=== PATIENT | male | born 1970 | race Caucasian/White ===

== ENCOUNTER 2021-11-28 19:24 | Inpatient (IN) ==
[2021-11-28 19:45] LABS: Basophils # 0.1 K/mcL (0.0-0.2); Basophils % 0.8 %; Eosinophils # 0.1 K/mcL (0.0-0.6); Eosinophils % 1.5 %; Hematocrit 45.5 % (37.5-50.1); Hemoglobin 14.4 g/dL (12.9-16.9); Immature Granulocytes % 0.8 % (0-4); Lymphocytes # 1.2 K/mcL (0.6-4.6); Mean Corpuscular HGB Conc 31.6 g/dL (31.6-35.5); Mean Corpuscular Hemoglobin 31.2 pg (28.0-33.3); Mean Corpuscular Volume 98.7 fL (83.0-100.0); Mean Platelet Volume 11.3 fL (9.4-12.4); Monocytes # 0.6 K/mcL (0.0-1.3); Monocytes % 10.7 %; Platelet Count 173 K/mcL (140-400); Red Blood Count 4.61 M/mcL (4.19-5.50); Red Cell Distribution Width 12.4 % (11.5-14.5); Segmented Neutrophils % 66.2 %
[2021-11-28] MEDS: DilTIAZem 50 MG/50 ML IV.SOLN IVC SCH (19:56)
[2021-11-28 20:01] LABS: INR 1.2; Prothrombin Time 13.9 Seconds (9.4-12.1)
[2021-11-28 20:04] LABS: Activated Partial Thrombo Time 31.2 Seconds (26.0-36.0)
[2021-11-28 20:04] LABS: Bilirubin,Urine Negative (Negative); Blood,Urine Negative (Negative); Clarity,Urine Clear (Clear); Color,Urine Yellow (Yellow); Glucose,Urine (UA) Normal (Normal); Hyaline Casts,Urine Few per lpf (None Seen); Ketones,Urine Negative (Negative); Leukocyte Esterase,Urine Negative (Negative); Mucus,Urine Many per lpf (None-Few); Nitrite,Urine Negative (Negative); Protein,Urine 100 mg/dL (Neg-Trace); RBC,Urine 0-3 per hpf (0-3); Specific Gravity,Urine > 1.030 (1.010-1.025); Squamous Epithelial Cell,Urine Few per hpf (None-Few); Urobilinogen,Urine Normal (Normal); WBC,Urine 0-3 per hpf (0-3)
[2021-11-28 20:06] LABS: BUN/Creatinine Ratio 15 (6-26); Blood Urea Nitrogen 13 mg/dL (6-20); Carbon Dioxide 25 mEq/L (23-29); Chloride 105 mEq/L (98-107); Glucose 94 mg/dL (70-105); Magnesium 1.9 mg/dL (1.6-2.6); Osmolality,Calculated 286 (280-300); Potassium 4.1 mEq/L (3.5-5.1); Sodium 138 mEq/L (136-145); Troponin I 0.03 ng/mL (< 0.04); eGFR For African Americans > 60 (> 60); eGFR For Non-African Americans > 60 (> 60)
[2021-11-28 20:20] LABS: Thyroid Stimulating Hormone 2.479 mcIU/mL (0.340-5.600)
[2021-11-28] MEDS ORDERED: Ondansetron 4 MG/2 ML VIAL IVP PRN (20:49)
[2021-11-28] MEDS ORDERED: Acetaminophen 325 MG TABLET PO PRN (20:49)
[2021-11-28] MEDS ORDERED: Naloxone 0.4 MG/ML INJ IVP PRN (20:49)
[2021-11-28] MEDS ORDERED: Perflutren Lipid Microsphere 1.3 ML in 0.9 % Sodium Chloride 8.7 ML IVP PRN (20:51)
[2021-11-29] MEDS ORDERED: Furosemide 40 MG/4 ML VIAL IVP ONE (00:02)
[2021-11-29] MEDS ORDERED: Ipratropium/Albuterol Neb 3 ML IH PRN (00:09)
[2021-11-29] MEDS: Azithromycin 500 MG in 0.9 % Sodium Chloride 250 ML IVPB SCH (00:28)
[2021-11-29] MEDS: Aspirin Enteric Coated 325 MG Tablet PO SCH ×2 (00:30→09:10)
[2021-11-29] MEDS ORDERED: Morphine Sulfate 2 MG/ML SYRINGE IVP ONE (01:08)
[2021-11-29] MEDS: DilTIAZem 50 MG/50 ML IV.SOLN IVC SCH ×3 (01:11→22:26)
[2021-11-29 01:55] LABS: Amphetamine Screen,Urine Negative ng/mL (Cutoff=1000); Barbiturate Screen,Urine Negative ng/mL (Cutoff=200); Benzodiazepines Screen,Urine Negative ng/mL (Cutoff=200); Cannabinoid Screen,Urine Negative ng/mL (Cutoff = 50); Cocaine Screen,Urine Negative ng/mL (Cutoff= 300); Opiate Screen,Urine Negative ng/mL (Cutoff=300); Phencyclidine Screen,Urine Negative ng/mL (Cutoff=25)
[2021-11-29 02:29] LABS: Basophils % 0.4 %; Eosinophils % 0.2 %; Hematocrit 43.5 % (37.5-50.1); Hemoglobin 13.6 g/dL (12.9-16.9); Immature Granulocytes % 0.6 % (0-4); Lymphocytes # 0.4 K/mcL (0.6-4.6); Lymphocytes % 7.8 %; Mean Corpuscular HGB Conc 31.3 g/dL (31.6-35.5); Mean Corpuscular Hemoglobin 30.9 pg (28.0-33.3); Mean Corpuscular Volume 98.9 fL (83.0-100.0); Mean Platelet Volume 11.6 fL (9.4-12.4); Monocytes # 0.2 K/mcL (0.0-1.3); Monocytes % 3.2 %; Neutrophils # 4.4 K/mcL (1.6-8.9); Platelet Count 160 K/mcL (140-400); Red Cell Distribution Width 12.4 % (11.5-14.5); Segmented Neutrophils % 87.8 %
[2021-11-29 02:39] LABS: INR 1.3
[2021-11-29 02:49] LABS: Alanine Aminotransferase 30 Units/L (7-52); Albumin 3.9 g/dL (3.5-5.7); Albumin/Globulin Ratio 1.3 (1.1-2.2); Alkaline Phosphatase 69 Units/L (34-104); Aspartate Amino Transferase 21 Units/L (13-39); BUN/Creatinine Ratio 17 (6-26); Bilirubin,Direct 0.1 mg/dL (0.0-0.2); Bilirubin,Indirect 0.6 mg/dL (0.0-1.0); Bilirubin,Total 0.7 mg/dL (0.3-1.0); Blood Urea Nitrogen 15 mg/dL (6-20); Calcium 8.8 mg/dL (8.6-10.3); Carbon Dioxide 23 mEq/L (23-29); Chloride 105 mEq/L (98-107); Chol/HDL Ratio 3.6 (0-4.9); Cholesterol 120 mg/dL (< 200); Globulin 2.9 g/dL (2.4-3.5); Glucose 227 mg/dL (70-105); HDL Cholesterol 33 mg/dL (40-59); LDL Cholesterol,Calculated 78 mg/dL (< 100); Magnesium 1.8 mg/dL (1.6-2.6); Osmolality,Calculated 292 (280-300); Potassium 4.2 mEq/L (3.5-5.1); Sodium 137 mEq/L (136-145); Total Protein 6.8 g/dL (6.4-8.9); Triglycerides 45 mg/dL (< 150); eGFR For African Americans > 60 (> 60); eGFR For Non-African Americans > 60 (> 60)
[2021-11-29 05:47] LABS: Estimated Average Glucose 128 mg/dl; Hemoglobin A1C 6.1 %
[2021-11-29] MEDS ORDERED: *HR* Enoxaparin 40 MG/0.4 ML SYRINGE SQ SCH (09:00)
[2021-11-29] MEDS: Budesonide/Formoterol 80/4.5 1 PUFF INH IH SCH ×2 (11:43→20:31)
[2021-11-29] MEDS: Metoprolol XL (24 HR) Succ 25 MG TAB.ER.24H PO SCH (12:47)
[2021-11-29] MEDS: Levalbuterol 1 PUFF INHALER IH SCH ×2 (15:48→20:32)
[2021-11-29] MEDS: Furosemide 40 MG/4 ML VIAL IVP SCH (17:55)
[2021-11-29] MEDS: *HR* Enoxaparin 150 MG/ML SYRINGE SQ SCH (17:56)
[2021-11-30] MEDS: Levalbuterol 1 PUFF INHALER IH SCH ×4 (04:09→20:03)
[2021-11-30 05:00] LABS: Basophils # 0.1 K/mcL (0.0-0.2); Basophils % 0.8 %; Eosinophils # 0.1 K/mcL (0.0-0.6); Eosinophils % 1.5 %; Hematocrit 44.9 % (37.5-50.1); Hemoglobin 13.8 g/dL (12.9-16.9); Immature Granulocytes % 0.6 % (0-4); Lymphocytes # 1.6 K/mcL (0.6-4.6); Mean Corpuscular HGB Conc 30.7 g/dL (31.6-35.5); Mean Corpuscular Hemoglobin 31.2 pg (28.0-33.3); Mean Corpuscular Volume 101.4 fL (83.0-100.0); Mean Platelet Volume 11.6 fL (9.4-12.4); Monocytes # 0.5 K/mcL (0.0-1.3); Monocytes % 7.8 %; Neutrophils # 4.3 K/mcL (1.6-8.9); Platelet Count 154 K/mcL (140-400); Red Blood Count 4.43 M/mcL (4.19-5.50); Red Cell Distribution Width 12.4 % (11.5-14.5); Segmented Neutrophils % 65.3 %; White Blood Count 6.6 K/mcL (4.3-11.1)
[2021-11-30] MEDS: *HR* Enoxaparin 150 MG/ML SYRINGE SQ SCH (05:11)
[2021-11-30 05:15] LABS: BUN/Creatinine Ratio 22 (6-26); Blood Urea Nitrogen 18 mg/dL (6-20); Calcium 8.9 mg/dL (8.6-10.3); Carbon Dioxide 24 mEq/L (23-29); Chloride 105 mEq/L (98-107); Glucose 108 mg/dL (70-105); Magnesium 1.9 mg/dL (1.6-2.6); Osmolality,Calculated 288 (280-300); Sodium 138 mEq/L (136-145); eGFR For African Americans > 60 (> 60); eGFR For Non-African Americans > 60 (> 60)
[2021-11-30] MEDS: Budesonide/Formoterol 80/4.5 1 PUFF INH IH SCH ×2 (07:37→20:03)
[2021-11-30] MEDS: Metoprolol XL (24 HR) Succ 25 MG TAB.ER.24H PO SCH ×2 (08:03→20:03)
[2021-11-30] MEDS: Aspirin Enteric Coated 325 MG Tablet PO SCH (08:03)
[2021-11-30] MEDS: Furosemide 40 MG/4 ML VIAL IVP SCH ×2 (08:03→16:44)
[2021-11-30] MEDS: Azithromycin 500 MG in 0.9 % Sodium Chloride 250 ML IVPB SCH (08:04)
[2021-11-30] MEDS: DilTIAZem 50 MG/50 ML IV.SOLN IVC SCH (08:08)
[2021-11-30] MEDS ORDERED: *HR* FentaNYL (PF) 100 MCG/2 ML VIAL ONE (13:16)
[2021-11-30] MEDS ORDERED: *HR* Midazolam HCl 2 MG/2 ML VIAL ONE (13:16)
[2021-11-30] MEDS ORDERED: ISOVUE-370 200 ML INFUS..BTL ONE (13:17)
[2021-11-30] MEDS ORDERED: Nitroglycerin 1,000 MCG/5 ML VIAL IV ONE (13:17)
[2021-11-30] MEDS ORDERED: 0.9 % Sodium Chloride 2,000 ML ONE (13:17)
[2021-11-30] MEDS ORDERED: *HR* Heparin 10,000 UNIT/10 ML VIAL ONE (13:17)
[2021-11-30] MEDS ORDERED: Heparin 1,000 UNITS/500 mL 500 ML ONE (13:17)
[2021-11-30] MEDS ORDERED: Amiodarone Premix 150 MG/100 ML BAG IVPB ONE (14:36)
[2021-11-30] MEDS ORDERED: Amiodarone Premix 360 MG/200 ML BAG IVC ONE (15:00)
[2021-11-30] MEDS: Apixaban 5 MG TABLET PO SCH (20:03)
[2021-11-30] MEDS: Amiodarone Premix 360 MG/200 ML BAG IVC SCH (22:26)
[2021-12-01] MEDS: Levalbuterol 1 PUFF INHALER IH SCH ×4 (04:25→20:24)
[2021-12-01 04:59] LABS: Basophils # 0.1 K/mcL (0.0-0.2); Basophils % 0.6 %; Eosinophils # 0.1 K/mcL (0.0-0.6); Eosinophils % 1.3 %; Hematocrit 43.2 % (37.5-50.1); Hemoglobin 13.6 g/dL (12.9-16.9); Immature Granulocytes % 0.6 % (0-4); Lymphocytes # 1.6 K/mcL (0.6-4.6); Lymphocytes % 20.4 %; Mean Corpuscular HGB Conc 31.5 g/dL (31.6-35.5); Mean Corpuscular Hemoglobin 31.1 pg (28.0-33.3); Mean Corpuscular Volume 98.9 fL (83.0-100.0); Mean Platelet Volume 11.6 fL (9.4-12.4); Monocytes # 0.6 K/mcL (0.0-1.3); Monocytes % 7.1 %; Neutrophils # 5.4 K/mcL (1.6-8.9); Platelet Count 166 K/mcL (140-400); Red Blood Count 4.37 M/mcL (4.19-5.50); Red Cell Distribution Width 12.3 % (11.5-14.5); White Blood Count 7.7 K/mcL (4.3-11.1)
[2021-12-01 05:17] LABS: BUN/Creatinine Ratio 19 (6-26); Blood Urea Nitrogen 19 mg/dL (6-20); Calcium 8.6 mg/dL (8.6-10.3); Carbon Dioxide 26 mEq/L (23-29); Chloride 103 mEq/L (98-107); Glucose 125 mg/dL (70-105); Magnesium 1.8 mg/dL (1.6-2.6); Osmolality,Calculated 288 (280-300); Potassium 3.9 mEq/L (3.5-5.1); Sodium 137 mEq/L (136-145); eGFR For African Americans > 60 (> 60); eGFR For Non-African Americans > 60 (> 60)
[2021-12-01] MEDS: Furosemide 40 MG/4 ML VIAL IVP SCH ×2 (07:24→17:38)
[2021-12-01] MEDS: Metoprolol XL (24 HR) Succ 25 MG TAB.ER.24H PO SCH ×2 (07:25→20:40)
[2021-12-01] MEDS: Apixaban 5 MG TABLET PO SCH ×2 (07:25→20:39)
[2021-12-01] MEDS: Aspirin 81 MG TAB.CHEW PO SCH (07:58)
[2021-12-01] MEDS: Amiodarone Premix 360 MG/200 ML BAG IVC SCH (10:17)
[2021-12-01] MEDS ORDERED: 0.9 % Sodium Chloride 500 ML IVC ONE (10:38)
[2021-12-01] MEDS ORDERED: Lidocaine Viscous Oral Soln 15 ML SOLUTION MM PRN (10:38)
[2021-12-01] MEDS: Budesonide/Formoterol 80/4.5 1 PUFF INH IH SCH ×2 (11:04→20:25)
[2021-12-01] MEDS: *HR* Midazolam HCl 5 MG/5 ML VIAL IVP PRN ×2 (11:10→11:25)
[2021-12-01] MEDS: *HR* FentaNYL (PF) 100 MCG/2 ML VIAL IVP PRN ×3 (11:10→11:25)
[2021-12-01] MEDS: *HR* Amiodarone 200 MG TABLET PO SCH (20:40)
[2021-12-02] MEDS: Levalbuterol 1 PUFF INHALER IH SCH ×4 (04:27→20:17)
[2021-12-02 06:11] LABS: Basophils % 0.4 %; Eosinophils # 0.1 K/mcL (0.0-0.6); Eosinophils % 1.2 %; Hematocrit 40.4 % (37.5-50.1); Hemoglobin 12.8 g/dL (12.9-16.9); Immature Granulocytes % 0.7 % (0-4); Lymphocytes # 1.2 K/mcL (0.6-4.6); Lymphocytes % 17.5 %; Mean Corpuscular HGB Conc 31.7 g/dL (31.6-35.5); Mean Corpuscular Hemoglobin 31.2 pg (28.0-33.3); Mean Corpuscular Volume 98.5 fL (83.0-100.0); Mean Platelet Volume 11.3 fL (9.4-12.4); Monocytes # 0.5 K/mcL (0.0-1.3); Monocytes % 7.6 %; Neutrophils # 4.9 K/mcL (1.6-8.9); Platelet Count 154 K/mcL (140-400); Red Cell Distribution Width 12.1 % (11.5-14.5); Segmented Neutrophils % 72.6 %; White Blood Count 6.8 K/mcL (4.3-11.1)
[2021-12-02 07:11] LABS: BUN/Creatinine Ratio 20 (6-26); Blood Urea Nitrogen 19 mg/dL (6-20); Calcium 8.6 mg/dL (8.6-10.3); Carbon Dioxide 30 mEq/L (23-29); Chloride 102 mEq/L (98-107); Glucose 135 mg/dL (70-105); Magnesium 1.9 mg/dL (1.6-2.6); Osmolality,Calculated 290 (280-300); Potassium 3.6 mEq/L (3.5-5.1); Sodium 138 mEq/L (136-145); eGFR For African Americans > 60 (> 60); eGFR For Non-African Americans > 60 (> 60)
[2021-12-02] MEDS: Furosemide 40 MG/4 ML VIAL IVP SCH ×2 (09:06→17:03)
[2021-12-02] MEDS: Apixaban 5 MG TABLET PO SCH ×2 (09:07→21:26)
[2021-12-02] MEDS: Aspirin 81 MG TAB.CHEW PO SCH (09:07)
[2021-12-02] MEDS: *HR* Amiodarone 200 MG TABLET PO SCH ×2 (09:07→21:26)
[2021-12-02] MEDS: Metoprolol XL (24 HR) Succ 25 MG TAB.ER.24H PO SCH ×2 (09:07→21:26)
[2021-12-02] MEDS: Budesonide/Formoterol 80/4.5 1 PUFF INH IH SCH ×2 (09:36→20:17)
[2021-12-03] MEDS: Levalbuterol 1 PUFF INHALER IH SCH ×4 (03:43→21:35)
[2021-12-03 03:51] LABS: Basophils # 0.1 K/mcL (0.0-0.2); Basophils % 0.7 %; Eosinophils # 0.1 K/mcL (0.0-0.6); Eosinophils % 1.6 %; Hematocrit 42.3 % (37.5-50.1); Hemoglobin 13.1 g/dL (12.9-16.9); Lymphocytes # 1.4 K/mcL (0.6-4.6); Lymphocytes % 19.7 %; Mean Corpuscular Hemoglobin 30.8 pg (28.0-33.3); Mean Corpuscular Volume 99.5 fL (83.0-100.0); Mean Platelet Volume 11.6 fL (9.4-12.4); Monocytes # 0.6 K/mcL (0.0-1.3); Monocytes % 7.8 %; Neutrophils # 4.9 K/mcL (1.6-8.9); Platelet Count 155 K/mcL (140-400); Red Blood Count 4.25 M/mcL (4.19-5.50); Red Cell Distribution Width 12.1 % (11.5-14.5); Segmented Neutrophils % 69.2 %; White Blood Count 7.1 K/mcL (4.3-11.1)
[2021-12-03 03:55] LABS: BUN/Creatinine Ratio 20 (6-26); Blood Urea Nitrogen 18 mg/dL (6-20); Calcium 8.5 mg/dL (8.6-10.3); Carbon Dioxide 33 mEq/L (23-29); Chloride 103 mEq/L (98-107); Glucose 105 mg/dL (70-105); Magnesium 1.8 mg/dL (1.6-2.6); Osmolality,Calculated 292 (280-300); Potassium 3.9 mEq/L (3.5-5.1); Sodium 140 mEq/L (136-145); eGFR For African Americans > 60 (> 60); eGFR For Non-African Americans > 60 (> 60)
[2021-12-03] MEDS: Budesonide/Formoterol 80/4.5 1 PUFF INH IH SCH ×2 (07:56→21:35)
[2021-12-03] MEDS: Metoprolol XL (24 HR) Succ 25 MG TAB.ER.24H PO SCH ×2 (08:37→20:54)
[2021-12-03] MEDS: Aspirin 81 MG TAB.CHEW PO SCH (08:37)
[2021-12-03] MEDS: *HR* Amiodarone 200 MG TABLET PO SCH ×2 (08:37→20:53)
[2021-12-03] MEDS: Furosemide 40 MG/4 ML VIAL IVP SCH ×2 (08:37→17:21)
[2021-12-03] MEDS: Apixaban 5 MG TABLET PO SCH ×2 (08:37→20:53)
[2021-12-04] MEDS: Levalbuterol 1 PUFF INHALER IH SCH ×4 (04:14→20:04)
[2021-12-04] MEDS: Aspirin 81 MG TAB.CHEW PO SCH (09:22)
[2021-12-04] MEDS: Metoprolol XL (24 HR) Succ 25 MG TAB.ER.24H PO SCH ×2 (09:23→20:17)
[2021-12-04] MEDS: *HR* Amiodarone 200 MG TABLET PO SCH ×2 (09:23→20:16)
[2021-12-04] MEDS: Apixaban 5 MG TABLET PO SCH ×2 (09:23→20:17)
[2021-12-04] MEDS: Furosemide 40 MG/4 ML VIAL IVP SCH (09:26)
[2021-12-04] MEDS: Budesonide/Formoterol 80/4.5 1 PUFF INH IH SCH ×2 (09:46→20:05)
[2021-12-04 20:30] VITALS: TEMP 98
[2021-12-05] MEDS: Levalbuterol 1 PUFF INHALER IH SCH ×2 (03:26→10:04)
[2021-12-05] MEDS: Furosemide 40 MG/4 ML VIAL IVP SCH ×2 (06:24→07:16)
[2021-12-05 07:15] VITALS: BP 112/78; PULSE 92; O2SAT 100
[2021-12-05] MEDS: Aspirin 81 MG TAB.CHEW PO SCH (07:16)
[2021-12-05] MEDS: Metoprolol XL (24 HR) Succ 25 MG TAB.ER.24H PO SCH (07:16)
[2021-12-05] MEDS: *HR* Amiodarone 200 MG TABLET PO SCH (07:16)
[2021-12-05] MEDS: Apixaban 5 MG TABLET PO SCH (07:16)
[2021-12-05] MEDS: Budesonide/Formoterol 80/4.5 1 PUFF INH IH SCH (10:04)
[2021-12-05] MEDS ORDERED: *HR* Amiodarone 200 MG TABLET PO SCH (21:00)
[2021-12-06] MEDS ORDERED: Spironolactone 12.5 MG TABLET PO SCH (09:00)
[2021-12-06] MEDS ORDERED: Furosemide 40 MG TABLET PO SCH (09:00)
== END 2021-12-05 10:35 | disposition home or self-care (01) | DRG 286 ==
LOC: 2NENU 19:24 → EMEROOARM 19:24 → SUATTDRO 20:49 → 2NENU 21:45
PROVIDERS: ADMIT Student in an Organized Health Care Education/Training Program; ATTEND Hospitalist

== ENCOUNTER 2022-01-21 14:13 | Inpatient (IN) ==
[2022-01-21] MEDS ORDERED: Amiodarone Premix 150 MG/100 ML BAG IVPB ONE ×2 (14:45→15:23)
[2022-01-21] MEDS ORDERED: *HR* Etomidate 20 MG/10 ML AMPUL IVP ONE (15:00)
[2022-01-21 15:05] LABS: Basophils # 0.1 K/mcL (0.0-0.2); Basophils % 0.5 %; Eosinophils # 0.2 K/mcL (0.0-0.6); Eosinophils % 1.6 %; Hematocrit 41.8 % (37.5-50.1); Hemoglobin 13.7 g/dL (12.9-16.9); Immature Granulocytes % 0.9 % (0-4); Lymphocytes # 1.2 K/mcL (0.6-4.6); Lymphocytes % 11.5 %; Mean Corpuscular HGB Conc 32.8 g/dL (31.6-35.5); Mean Corpuscular Hemoglobin 31.7 pg (28.0-33.3); Mean Corpuscular Volume 96.8 fL (83.0-100.0); Mean Platelet Volume 11.1 fL (9.4-12.4); Monocytes # 0.6 K/mcL (0.0-1.3); Monocytes % 6.1 %; Neutrophils # 7.9 K/mcL (1.6-8.9); Platelet Count 200 K/mcL (140-400); Red Blood Count 4.32 M/mcL (4.19-5.50); Red Cell Distribution Width 12.7 % (11.5-14.5); Segmented Neutrophils % 79.4 %
[2022-01-21 15:11] LABS: INR 1.4; Prothrombin Time 16.1 Seconds (9.4-12.1)
[2022-01-21 15:14] LABS: Activated Partial Thrombo Time 32.8 Seconds (26.0-36.0)
[2022-01-21 15:38] LABS: BUN/Creatinine Ratio 16 (6-26); Blood Urea Nitrogen 15 mg/dL (6-20); Carbon Dioxide 28 mEq/L (23-29); Chloride 99 mEq/L (98-107); Glucose 138 mg/dL (70-105); Magnesium 1.8 mg/dL (1.6-2.6); Osmolality,Calculated 287 (280-300); Potassium 3.9 mEq/L (3.5-5.1); Sodium 137 mEq/L (136-145); Thyroid Stimulating Hormone 3.135 mcIU/mL (0.340-5.600); Troponin I 0.04 ng/mL (< 0.04); eGFR For African Americans > 60 (> 60); eGFR For Non-African Americans > 60 (> 60)
[2022-01-21] MEDS ORDERED: Magnesium Sulfate 1 GM/102 ML PIGGYBACK IVPB ONE (16:07)
[2022-01-21] MEDS ORDERED: *HR* Digoxin 0.5 MG/2 ML AMPUL IVP ONE (16:08)
[2022-01-21] MEDS ORDERED: *HR* LORazepam 2 MG/ML VIAL IVP ONE ×2 (16:12→22:29)
[2022-01-21] MEDS: Amiodarone Premix 360 MG/200 ML BAG IVC SCH (16:57)
[2022-01-21] MEDS ORDERED: Naloxone 0.4 MG/ML INJ IVP PRN (17:47)
[2022-01-21] MEDS ORDERED: Melatonin 3 MG TABLET PO PRN (17:47)
[2022-01-21] MEDS ORDERED: Ondansetron ODT 4 MG TAB.RAPDIS SL PRN (17:47)
[2022-01-21] MEDS ORDERED: Perflutren Lipid Microsphere 1.3 ML in 0.9 % Sodium Chloride 8.7 ML IVP PRN (18:32)
[2022-01-21] MEDS: Apixaban 5 MG TABLET PO SCH (20:19)
[2022-01-21 20:30] LABS: Phosphorous 3.8 mg/dL (2.7-4.5)
[2022-01-21 20:31] LABS: Troponin I 0.03 ng/mL (< 0.04)
[2022-01-21] MEDS ORDERED: Nitroglycerin 0.4 MG TAB.SUBL SL ONE (20:42)
[2022-01-21] MEDS ORDERED: Acetaminophen 325 MG TABLET PO PRN (21:05)
[2022-01-22] MEDS ORDERED: Ondansetron 4 MG/2 ML VIAL IVP ONE (00:39)
[2022-01-22 01:33] LABS: Basophils # 0.1 K/mcL (0.0-0.2); Basophils % 0.7 %; Eosinophils # 0.2 K/mcL (0.0-0.6); Eosinophils % 1.7 %; Hemoglobin 13.9 g/dL (12.9-16.9); Immature Granulocytes % 1.3 % (0-4); Lymphocytes # 2.2 K/mcL (0.6-4.6); Lymphocytes % 21.5 %; Mean Corpuscular HGB Conc 32.3 g/dL (31.6-35.5); Mean Corpuscular Hemoglobin 31.5 pg (28.0-33.3); Mean Corpuscular Volume 97.5 fL (83.0-100.0); Mean Platelet Volume 11.3 fL (9.4-12.4); Monocytes # 0.7 K/mcL (0.0-1.3); Monocytes % 6.9 %; Platelet Count 246 K/mcL (140-400); Red Blood Count 4.41 M/mcL (4.19-5.50); Red Cell Distribution Width 12.7 % (11.5-14.5); Segmented Neutrophils % 67.9 %; White Blood Count 10.3 K/mcL (4.3-11.1)
[2022-01-22] MEDS ORDERED: *HR* Promethazine 25 MG/ML VIAL IM ONE (02:32)
[2022-01-22] MEDS: Amiodarone Premix 360 MG/200 ML BAG IVC SCH ×2 (05:10→17:16)
[2022-01-22 08:10] LABS: BUN/Creatinine Ratio 16 (6-26); Blood Urea Nitrogen 22 mg/dL (6-20); Carbon Dioxide 22 mEq/L (23-29); Chloride 101 mEq/L (98-107); Chol/HDL Ratio 2.9 (0-4.9); Cholesterol 96 mg/dL (< 200); Glucose 153 mg/dL (70-105); HDL Cholesterol 33 mg/dL (40-59); LDL Cholesterol,Calculated 47 mg/dL (< 100); Osmolality,Calculated 286 (280-300); Potassium 4.4 mEq/L (3.5-5.1); Sodium 135 mEq/L (136-145); Triglycerides 78 mg/dL (< 150); eGFR For African Americans > 60 (> 60); eGFR For Non-African Americans 55 (> 60)
[2022-01-22] MEDS ORDERED: Spironolactone 25 MG TABLET PO SCH (09:00)
[2022-01-22] MEDS ORDERED: Furosemide 40 MG TABLET PO SCH (09:00)
[2022-01-22] MEDS: Apixaban 5 MG TABLET PO SCH ×2 (09:15→20:42)
[2022-01-22] MEDS: Metoprolol XL (24 HR) Succ 25 MG TAB.ER.24H PO SCH (09:16)
[2022-01-22] MEDS ORDERED: Perflutren Lipid Microsphere 1.3 ML in 0.9 % Sodium Chloride 8.7 ML IVP PRN (09:48)
[2022-01-22] MEDS: Albumin Human 5% 12.5 GM/250 ML IV.SOLN IVC SCH ×2 (15:52→16:27)
[2022-01-22] MEDS: *HR* Amiodarone 200 MG TABLET PO SCH (17:16)
[2022-01-23 06:23] LABS: BUN/Creatinine Ratio 20 (6-26); Blood Urea Nitrogen 19 mg/dL (6-20); Calcium 8.9 mg/dL (8.6-10.3); Carbon Dioxide 29 mEq/L (23-29); Chloride 102 mEq/L (98-107); Digoxin < 0.3 ng/mL (0.8-2.0); Glucose 120 mg/dL (70-105); Osmolality,Calculated 283 (280-300); Potassium 4.3 mEq/L (3.5-5.1); Sodium 135 mEq/L (136-145); eGFR For African Americans > 60 (> 60); eGFR For Non-African Americans > 60 (> 60)
[2022-01-23] MEDS: Metoprolol XL (24 HR) Succ 25 MG TAB.ER.24H PO SCH ×2 (08:38→20:39)
[2022-01-23] MEDS: *HR* Amiodarone 200 MG TABLET PO SCH (08:38)
[2022-01-23] MEDS: Apixaban 5 MG TABLET PO SCH ×2 (08:39→20:39)
[2022-01-23] MEDS ORDERED: *HR* Digoxin 0.5 MG/2 ML AMPUL IVP ONE (12:27)
[2022-01-23] MEDS: Furosemide 20 MG/2 ML VIAL IVP SCH ×2 (12:35→20:39)
[2022-01-23] MEDS: *HR* Digoxin 0.5 MG/2 ML AMPUL IVP SCH (18:09)
[2022-01-24] MEDS: *HR* Digoxin 0.5 MG/2 ML AMPUL IVP SCH (00:13)
[2022-01-24 04:24] LABS: Basophils # 0.1 K/mcL (0.0-0.2); Eosinophils # 0.2 K/mcL (0.0-0.6); Hematocrit 36.9 % (37.5-50.1); Immature Granulocytes % 1.1 % (0-4); Lymphocytes # 1.3 K/mcL (0.6-4.6); Lymphocytes % 17.3 %; Mean Corpuscular Hemoglobin 31.5 pg (28.0-33.3); Mean Corpuscular Volume 98.4 fL (83.0-100.0); Mean Platelet Volume 11.1 fL (9.4-12.4); Monocytes # 0.6 K/mcL (0.0-1.3); Monocytes % 8.3 %; Neutrophils # 5.1 K/mcL (1.6-8.9); Platelet Count 163 K/mcL (140-400); Red Blood Count 3.75 M/mcL (4.19-5.50); Red Cell Distribution Width 12.4 % (11.5-14.5); Segmented Neutrophils % 70.3 %; White Blood Count 7.3 K/mcL (4.3-11.1)
[2022-01-24 04:26] LABS: Hemoglobin 11.8 g/dL (12.9-16.9)
[2022-01-24 04:47] LABS: BUN/Creatinine Ratio 17 (6-26); Blood Urea Nitrogen 16 mg/dL (6-20); Calcium 8.5 mg/dL (8.6-10.3); Carbon Dioxide 31 mEq/L (23-29); Chloride 103 mEq/L (98-107); Glucose 91 mg/dL (70-105); Osmolality,Calculated 289 (280-300); Potassium 4.3 mEq/L (3.5-5.1); Sodium 139 mEq/L (136-145); eGFR For African Americans > 60 (> 60); eGFR For Non-African Americans > 60 (> 60)
[2022-01-24] MEDS: Metoprolol XL (24 HR) Succ 25 MG TAB.ER.24H PO SCH (08:24)
[2022-01-24] MEDS: Apixaban 5 MG TABLET PO SCH (08:24)
[2022-01-24] MEDS: Furosemide 20 MG/2 ML VIAL IVP SCH (08:24)
[2022-01-24 11:29] VITALS: BP 124/92; PULSE 110; TEMP 98.8; O2SAT 98
== END 2022-01-24 12:06 | disposition home or self-care (01) | DRG 291 ==
LOC: EMEROOARM 14:13 → 2NNU 14:13 → SUATTDRO 18:20 → 2NNU 19:22
PROVIDERS: ADMIT Hospitalist; ATTEND Internal Medicine

== ENCOUNTER 2022-02-28 11:00 | Inpatient (IN) ==
[2022-03-27] MEDS ORDERED: Naloxone 0.4 MG/ML INJ IVP PRN (13:03)
[2022-03-27] MEDS ORDERED: Melatonin 3 MG TABLET PO PRN (13:03)
[2022-03-27 14:10] LABS: Hematocrit 45.4 % (37.5-50.1); Mean Corpuscular Hemoglobin 32.2 pg (28.0-33.3); Mean Corpuscular Volume 97.4 fL (83.0-100.0); Mean Platelet Volume 11.2 fL (9.4-12.4); Platelet Count 166 K/mcL (140-400); Red Blood Count 4.66 M/mcL (4.19-5.50); Red Cell Distribution Width 12.4 % (11.5-14.5); White Blood Count 8.1 K/mcL (4.3-11.1)
[2022-03-27 14:52] LABS: BUN/Creatinine Ratio 14 (6-26); Blood Urea Nitrogen 14 mg/dL (6-20); Calcium 8.7 mg/dL (8.6-10.3); Carbon Dioxide 25 mEq/L (23-29); Chloride 105 mEq/L (98-107); Glucose 117 mg/dL (70-105); Osmolality,Calculated 286 (280-300); Potassium 4.2 mEq/L (3.5-5.1); Sodium 137 mEq/L (136-145)
[2022-03-27] MEDS: Apixaban 5 MG TABLET PO SCH (21:12)
[2022-03-27] MEDS: Metoprolol XL (24 HR) Succ 50 MG TAB.ER.24H PO SCH (21:13)
[2022-03-27] MEDS: FluocinoNIDE 0.05% CRM 15 GM TUBE TP SCH (21:14)
[2022-03-27] MEDS: Famotidine 20 MG TABLET PO SCH (21:17)
[2022-03-28] MEDS: Apixaban 5 MG TABLET PO SCH ×2 (08:58→21:29)
[2022-03-28] MEDS: FluocinoNIDE 0.05% CRM 15 GM TUBE TP SCH ×2 (08:58→21:34)
[2022-03-28] MEDS: Famotidine 20 MG TABLET PO SCH ×3 (08:59→21:43)
[2022-03-28] MEDS: Metoprolol XL (24 HR) Succ 50 MG TAB.ER.24H PO SCH ×2 (10:24→21:29)
[2022-03-28] MEDS: Spironolactone 25 MG TABLET PO SCH (10:24)
[2022-03-28] MEDS: Furosemide 20 MG TABLET PO SCH (10:24)
[2022-03-29] MEDS: Famotidine 20 MG TABLET PO SCH ×2 (07:44→21:06)
[2022-03-29] MEDS: FluocinoNIDE 0.05% CRM 15 GM TUBE TP SCH ×2 (09:12→21:12)
[2022-03-29] MEDS: Apixaban 5 MG TABLET PO SCH ×2 (09:12→21:05)
[2022-03-29] MEDS: Furosemide 20 MG TABLET PO SCH (09:12)
[2022-03-29] MEDS: Metoprolol XL (24 HR) Succ 50 MG TAB.ER.24H PO SCH ×2 (09:12→21:05)
[2022-03-29] MEDS: Spironolactone 25 MG TABLET PO SCH (09:12)
[2022-03-29] MEDS ORDERED: 0.9 % Sodium Chloride 500 ML IVC SCH (10:30)
[2022-03-29] MEDS: *HR* Midazolam HCl 5 MG/5 ML VIAL IVP PRN ×4 (11:20→11:35)
[2022-03-29] MEDS: *HR* FentaNYL (PF) 100 MCG/2 ML VIAL IVP PRN ×3 (11:20→11:35)
[2022-03-30 06:57] VITALS: BP 121/97; PULSE 120; TEMP 97.9; O2SAT 98
[2022-03-30] MEDS: Metoprolol XL (24 HR) Succ 50 MG TAB.ER.24H PO SCH (09:07)
[2022-03-30] MEDS: Apixaban 5 MG TABLET PO SCH (09:07)
[2022-03-30] MEDS: Spironolactone 25 MG TABLET PO SCH (09:07)
[2022-03-30] MEDS: Famotidine 20 MG TABLET PO SCH (09:07)
[2022-03-30] MEDS: Furosemide 20 MG TABLET PO SCH (09:07)
[2022-03-30] MEDS: FluocinoNIDE 0.05% CRM 15 GM TUBE TP SCH (09:36)
[2022-03-30] MEDS ORDERED: Metoprolol XL (24 HR) Succ 25 MG TAB.ER.24H PO ONE (10:23)
[2022-03-30] MEDS ORDERED: Metoprolol XL (24 HR) Succ 25 MG TAB.ER.24H PO SCH ×2 (21:00)
== END 2022-03-30 11:13 | disposition home or self-care (01) | DRG 309 ==
LOC: 3BNU
PROVIDERS: ADMIT Internal Medicine Clinical Cardiac Electrophysiology; ATTEND Internal Medicine Clinical Cardiac Electrophysiology